=== PATIENT | female | born 1945 | race Hispanic/Latino ===

== ENCOUNTER → 2017-06-10 | Outpatient (CLI) | payer MEDICARE ==
--- NOTE | 2017-06-12 15:59 | CT ---
EXAM DESCRIPTION: CTA Head: Computed Tomographic Angiography. CLINICAL HISTORY: CEREBRAL INFARCTION. I63.9 COMPARISON: None. TECHNIQUE: Spiral -axial scans through the head and brain at 2.5 mm intervals, with nonionic IV contrast. Coronal and sagittal 1.25 mm reconstructions. Axial and coronal 2.0 mm MIP reconstructions. No adverse reactions. Total Exam DLP: 173.95 mGy-cm. This exam was performed according to our departmental CT dose-optimization program which includes automated exposure control, adjustment of the mA and/or kV according to patient size and/or use of iterative reconstruction technique; to reduce radiation dose to as low as reasonably achievable (ALARA). FINDINGS: Atherosclerotic calcification abutting the bilateral ICAs days in the bilateral carotid siphons. Symmetric appearance of the supraclinoid segments with no calcification. Question of a filling defect in the A1 segment of the right WILEY. Left A1 segment unremarkable. Segments distal to the anterior communicating artery are negative. Proximal segments of the bilateral MCAs are symmetric and unremarkable. No posterior communicating arteries are visualized. No aneurysms, no mass effect, no vasculitis. Distal vertebral arteries are symmetric and at the skull base with calcification in the left vertebral artery at the level of the C1 axis. Cerebellar branch vessels from the basilar artery are unremarkable. No aneurysm, no stenoses, no mass effect and no vasculitis. No hemorrhage. No mass-effect and no midline shift. Normal contrast enhancement. Bilateral low-density in the periventricular white matter. .physiologic calcifications in the pineal gland and choroid plexus. No effacement or displacement of the ventricles, CSF spaces, or subdural spaces. Normal contrast enhancement. No extra axial fluid collection or hemorrhage. No gross abnormalities of the bony calvarium. Bilateral symmetric hypertrophy of the inner table of the frontal bones. IMPRESSION: 1. A1 segment of the right WILEY may be congenitally atretic, stenotic, or contain a thrombosis. No calcification. 2. No aneurysm, mass effect, or vasculitis in the anterior posterior circulations. 3. No abnormal enhancement in the brain parenchyma. No definitive infarction, but this examination is insensitive. Bilateral periventricular small vessel disease is likely for low-density in the white matter. Electronically signed by: Giuseppe Garcia MD 06/12/2017 3:58 PM BILLING CLERK Workstation: [id number]
== END ==
LOC: CT 08:43
PROVIDERS: ATTEND Nurse Practitioner
DX: I63.9 Cerebral infarction, unspecified (principal); G44.221 Chronic tension-type headache, intractable

== ENCOUNTER 2017-07-23 23:11 | Emergency (ER) | payer MEDICARE ==
--- NOTE | 2017-07-24 00:11 | CT ---
EXAM: CT head without contrast. INDICATION: Dizziness. TECHNIQUE: Contiguous axial CT images of the brain. Intravenous contrast: Absent. DLP 859 mGy-cm. This exam was performed according to our departmental dose-optimization program, which includes automated exposure control, adjustment of the mA and/or kV according to patient size and/or use of iterative reconstruction technique. COMPARISON: 08/25/2007. FINDINGS: Subcutaneous: Unremarkable. No acute intracranial hemorrhage. There is mild diffuse cerebral atrophy with mild to moderate periventricular and deep white matter chronic microvascular changes. There are old lacunar infarcts involving the bilateral basal ganglia, left thalamus, and right cerebellum. No midline shift. No mass effect. Ventricles: No hydrocephalus. Kearns-white differentiation preserved. Paranasal sinuses/mastoid air cells: Visualized portions are aerated. Bones/orbits: Visualized portions are unremarkable. IMPRESSION: 1. No CT evidence of acute intracranial hemorrhage. Electronically signed by: Eduardo Bunch MD 07/24/2017 12:10 AM CDT Workstation: [id number]
--- NOTE | 2017-07-24 00:27 | ED.PDOC ---
History of Present Illness - General Chief Complaint: General Stated Complaint: L tongue,lip,face numb, dizzy since AM Time Seen by Provider: 07/23/17 23:24 Source: patient Exam Limitations: no limitations - History of Present Illness Initial Comments: the patient is a 71-year-old female presents to the emergency room secondary to left-sided facial symptoms that she woke up with this morning. The patient reports that her left lower jaw and cheek feel a little bit numb though she can actually feel touch. She reports that the left side of her tongue feels a little bit funny. She reports that last night for the first time she took a large dose of Benadryl to help her sleep. She reports that she didn't sleep very hard for the first time in a long time. She does still have some dry mouth. She may have had a little bit of dizziness this morning but that has resolved. Most of the numbnessthat she experiences morning on her lower cheek has actually resolved as well. She is here out of concern for a stroke. She has no muscular weakness. Her speech is clear. No facial droop. No rash breaking out in the area. No history of any shingles in that area. No history of any multiple sclerosis. Severity: mild Improving Factors: nothing Worsening Factors: nothing Associated Symptoms: denies symptoms Allergies/Adverse Reactions: Allergies Butorphanol [From Stadol] Allergy (Verified 07/23/17 23:38) Sulfa Drugs Allergy (Verified 07/23/17 23:38) Home Medications: Ambulatory Orders Magnesium Oxide 400 mg PO DAILY #30 cap 07/24/17 Review of Systems - Review of Systems Constitutional: States: no symptoms reported EENTM: States: see HPI Respiratory: States: no symptoms reported Cardiology: States: no symptoms reported Gastrointestinal/Abdominal: States: no symptoms reported Genitourinary: States: no symptoms reported Musculoskeletal: States: no symptoms reported Skin: States: no symptoms reported Neurological: States: see HPI Endocrine: States: no symptoms reported All other Systems: No Change from Baseline Past Medical History (General) - Patient Medical History Hx Seizures: No Hx Stroke: Yes Hx Dementia: No Hx Asthma: No Hx of COPD: No 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 Hx Congestive Heart Failure: No Hx Pacemaker: No Hx Hypertension: Yes Hx Thyroid Disease: No Hx Diabetes: No Hx Gastroesophageal Reflux: Yes Hx Renal Disease: No Hx Cancer: No Hx of HIV: No Hx Hepatitis C: No Hx MRSA: No Surgical History: appendectomy, Hysterectomy - Vaccination History Hx Tetanus, Diphtheria Vaccination: No Hx Influenza Vaccination: No Hx Pneumococcal Vaccination: No - Social History Hx Tobacco Use: Yes Hx Alcohol Use: No Family Medical History - Family History Mother Family History: Unknown Physical Exam - Physical Exam General Appearance: Alert, Comfortable, No apparent distress Eye Exam: bilateral normal Ears, Nose, Throat: hearing grossly normal, normal ENT inspection, normal pharynx Neck: non-tender, full range of motion, supple Respiratory: chest non-tender, lungs clear, normal breath sounds, no respiratory distress, no accessory muscle use Cardiovascular/Chest: normal peripheral pulses, regular rate, rhythm, no edema Peripheral Pulses: radial,right: 2+, radial,left: 2+, dorsalis pedis,right: 2+, dorsalis pedis,left: 2+ Gastrointestinal/Abdominal: non tender, soft Rectal Exam: deferred Back Exam: normal inspection, no CVA tenderness Extremity: normal range of motion, non-tender, normal inspection, no pedal edema , normal capillary refill Neurologic: alert, normal mood/affect, oriented x 3, other - see history of present illness. DTR: 2+: Patellar, left, Patellar, right Skin Exam: normal color Comments: Vital Signs - 24 hr 07/23/17 23:17 Temperature 98.6 F Pulse Rate 80 Pulse Rate [ 83 monitor] Respiratory 16 Rate Blood Pressure 160/77 [Left Arm] O2 Sat by Pulse 98 Oximetry Progress - Progress Progress: 07/24/17 00:28 the patient is a 71-year-old presenting with left lower cheek and left sided tongue symptoms since early this morning. Head CT is reassuring as is the lab work. She does have some mild hypomagnesemia and will be written for some magnesium oxide to take for the next month and have that rechecked afterwards. I do not think that has anything to do with her symptoms today. I believe she has an irritation of the mandibular branch of the trigeminal nerve on the left possibly from sleeping heavily in an awkward position last night. Symptoms do appear to be resolving. She needs to avoid Benadryl for now. Given her history she may also benefit from being set up with a study for possible sleep apnea. Obviously if symptoms worsen or she develops a rash in the area, then a change in treatment plan may be warranted. ER warnings were given for any worsening. She should follow up with her primary care doctor towards the end of the coming week otherwise. - Results/Orders Results/Orders: 07/23/17 23:45 EKG STAT Laboratory Results - last 24 hr 07/23/17 07/23/17 23:38 23:38 WBC 9.5 RBC 4.81 Hgb 13.3 Hct 39.9 MCV 83.0 MCH 27.7 MCHC 33.3 RDW 14.2 Plt Count 235 MPV 9.4 Absolute Neuts (auto) 6.80 Absolute Lymphs (auto) 1.50 Absolute Monos (auto) 0.70 Absolute Eos (auto) 0.30 Absolute Basos (auto) 0.10 Neutrophils % 72.2 Lymphocytes % 15.4 L Monocytes % 7.9 Eosinophils % 3.5 Basophils % 1.0 Sodium 140 Potassium 3.8 Chloride 103 Carbon Dioxide 25 Anion Gap 15.8 BUN 9 Creatinine 0.58 L BUN/Creatinine Ratio 15.5 Random Glucose 176 H Serum Osmolality 282.4 Calcium 9.2 Magnesium 1.5 L Total Bilirubin 0.6 AST 35 ALT 23 Alkaline Phosphatase 100 Serum Total Protein 6.7 Albumin 3.7 Globulin 3.0 Albumin/Globulin Ratio 1.[address] shows no evidence of any acute pathology. She does have chronic changes. Departure - Departure Clinical Impression: Hypomagnesemia, Trigeminal nerve palsy Disposition: Discharge to Home or Self Care Condition: Fair Departure Forms: ED Discharge - Pt. Copy, Patient Portal Self Enrollment Instructions: DI for Trigeminal Neuralgia Diet: regular diet Activity: increase activity as tolerated Referrals: MODESTO LESTER [Primary Care Provider] - 1-2 Weeks Prescriptions: Magnesium Oxide 400 mg PO DAILY #30 cap Home Medications: Ambulatory Orders Magnesium Oxide 400 mg PO DAILY #30 cap 07/24/17 Additional Instructions: the patient is a 71-year-old presenting with left lower cheek and left sided tongue symptoms since early this morning. Head CT is reassuring as is the lab work. She does have some mild hypomagnesemia and will be written for some magnesium oxide to take for the next month and have that rechecked afterwards. I do not think that has anything to do with her symptoms today. I believe she has an irritation of the mandibular branch of the trigeminal nerve on the left possibly from sleeping heavily in an awkward position last night. Symptoms do appear to be resolving. She needs to avoid Benadryl for now. Given her history she may also benefit from being set up with a study for possible sleep apnea. Obviously if symptoms worsen or she develops a rash in the area, then a change in treatment plan may be warranted. ER warnings were given for any worsening. She should follow up with her primary care doctor towards the end of the coming week otherwise.
[2017-07-24 00:50] VITALS: BP 148/84; TEMP 98.4; O2SAT 93
== END 2017-07-24 00:40 | disposition home or self-care (01) ==
LOC: ER 23:11
DX: G58.8 Other specified mononeuropathies (principal); E83.42 Hypomagnesemia; I10 Essential (primary) hypertension; K21.9 Gastro-esophageal reflux disease without esophagitis; Z87.891 Personal history of nicotine dependence; Z95.818 Presence of other cardiac implants and grafts

== ENCOUNTER → 2019-11-14 | Outpatient (CLI) | payer MEDICARE | LOC: LAB.O 13:24 | DX: K56.600 Partial intestinal obstruction, unspecified as to cause (principal); K59.01 Slow transit constipation; I25.10 Atherosclerotic heart disease of native coronary artery without angina pectoris; R19.4 Change in bowel habit; D49.0 Neoplasm of unspecified behavior of digestive system ==